=== PATIENT | male | born 1955 | race Caucasian/White ===

== ENCOUNTER → 2016-09-15 | Outpatient (CLI) | payer OTHER | LOC: KOH-I 16:45 | DX: J44.0 Chronic obstructive pulmonary disease with (acute) lower respiratory infection (principal); J20.9 Acute bronchitis, unspecified | CPT/HCPCS: 71020 ==

== ENCOUNTER → 2016-10-06 | Outpatient (CLI) | payer OTHER | LOC: HEART 5 11:04 | DX: J45.50 Severe persistent asthma, uncomplicated (principal) | CPT/HCPCS: 94060 ==

== ENCOUNTER → 2016-10-06 | Outpatient (CLI) | payer OTHER ==
[2016-10-06 13:30] LABS: HEMOGLOBIN 14.3 gm/dl (14.0-17.5); RED BLOOD COUNT 4.83 M/UL (4.20-5.50); WHITE BLOOD COUNT 7.3 K/UL (4.5-11.0)
== END ==
LOC: LAB 12:02
PROVIDERS: Internal Medicine Pulmonary Disease
DX: J45.50 Severe persistent asthma, uncomplicated (principal)
CPT/HCPCS: 36415; 82785; 85025

== ENCOUNTER → 2021-06-13 | Outpatient (CLI) | payer MEDICARE, OTHER ==
[~2021-06-13] MED LIST: AMLODIPINE BESYL5 MG PO; AMOX TR-K CLV1 EAC4 PO; ASPIRIN EC81 MG PO; CLARITIN 10MG T10 MG PO; FLOMAX 0.4 MG0.4 MG PO; FLUTICASONE-SA1 EAC4 IH; INCRUSE ELLI62.5 MCG INH; IPRAT-ALBUT 0.5-3 ML INH; MONTELUKAST SOD10 MG PO; OMEPRAZOLE20 MG PO; PREDNISONE 10 M10 MG PO; PREDNISONE20 MG PO; PROZAC 20 MG CA20 MG PO; TESSALON PERLE100 MG PO; TRIAMTERENE-HC1 EAC4 PO; VENTOLIN HFA 66.7 GM INH; ZOCOR 40 MG TAB40 MG PO
== END ==
LOC: HEART 5 13:53
DX: R06.02 Shortness of breath (principal); Z92.29 Personal history of other drug therapy
CPT/HCPCS: 94060; 95012